=== PATIENT | female | born 1970 | race Caucasian/White ===

== ENCOUNTER 2019-12-12 07:51 | Emergency (ER) | payer OTHER ==
[~2019-12-12] VITALS: Ht 162.6 cm; Wt 56.7 kg
== END 2019-12-12 10:06 | disposition home or self-care (01) ==
LOC: ER 07:51
DX: J03.90 Acute tonsillitis, unspecified (principal)

== ENCOUNTER 2019-12-15 02:37 | Emergency (ER) | payer OTHER ==
[~2019-12-15] VITALS: Ht 162.6 cm; Wt 56.7 kg
[2019-12-15] MEDS ORDERED: AMOX1TAB5 (03:13)
[2019-12-15] MEDS ORDERED: FLONASE16 GM (03:13)
[2019-12-15] MEDS ORDERED: MUCUS RELIEF1200 MG (03:14)
[2019-12-15] MEDS ORDERED: TYLENOL ARTHRI650 MG (03:14)
[2019-12-15] MEDS ORDERED: CEPACOL SORE T1 EAC1 (03:15)
[2019-12-15] MEDS ORDERED: ORASEP SPRAY30 ML MM (06:13)
== END 2019-12-15 06:18 | disposition home or self-care (01) ==
LOC: ER 02:37
DX: J06.9 Acute upper respiratory infection, unspecified (principal)

== ENCOUNTER → 2020-05-31 | Outpatient (CLI) | payer OTHER ==
[~2020-05-31] MED LIST: AMOX1TAB5; CEPACOL SORE T1 EAC1; FLONASE16 GM; MUCUS RELIEF1200 MG; ORASEP SPRAY30 ML MM; TYLENOL ARTHRI650 MG
== END | disposition home or self-care (01) ==
LOC: SONOGRAMA 10:54 → MAMO-SONO 11:15
PROVIDERS: ATTEND Obstetrics & Gynecology
DX: Z12.31 Encounter for screening mammogram for malignant neoplasm of breast (principal); N60.11 Diffuse cystic mastopathy of right breast; N60.12 Diffuse cystic mastopathy of left breast

== ENCOUNTER 2023-11-01 06:13 | Emergency (ER) | payer OTHER ==
[~2023-11-01] VITALS: Ht 167.6 cm; Wt 68.0 kg
== END 2023-11-01 08:50 | disposition home or self-care (01) ==
LOC: ER 06:13
DX: J03.80 Acute tonsillitis due to other specified organisms (principal); B96.89 Other specified bacterial agents as the cause of diseases classified elsewhere; Z88.6 Allergy status to analgesic agent